=== PATIENT | female | born 1990 | race Caucasian/White ===

== ENCOUNTER → 2017-12-06 | Outpatient (CLI) | payer OTHER ==
[~2017-12-06] MED LIST: MUCINEX DM ER1 EACH PO; SINCALIDE 3 MCG/VIAL INJ ONE
--- NOTE | 2017-12-06 19:25 | Diagnostic Imaging Report ---
Hepatobiliary Scan with Gallbladder Ejection Fraction Clinical information: 27 F with RUQ abdominal pain and nausea x 1 month Report: Following intravenous administration of 6 millicuries of Tc-99m mebrofenin, sequential static images of the abdomen in the anterior projection were obtained through 75 minutes. Sincalide (CCK analog) 1.7 micrograms was administered intravenously over 30 minutes with additional imaging for determination of gallbladder ejection fraction. Perfusion to the liver is normal. Extraction of tracer from the blood pool by the liver parenchyma is normal. Tracer is seen promptly within the biliary tract. The gallbladder begins to fill by 60 minutes post-injection of tracer and fills adequately. Tracer is seen in the small bowel by 15 minutes. The gallbladder ejection fraction with administration of sincalide is 72% (normal greater than 40%). Impression: 1. Filling of the gallbladder excludes the diagnosis of acute cystic duct obstruction/acute cholecystitis. 2. Normal gallbladder ejection fraction of 72% does not support the clinical diagnosis of chronic cholecystitis/gallbladder dyskinesia. Signed by: Dr. Carleen Stockton M.D. on 12/06/2017 7:21 PM
== END ==
LOC: NM 16:00
PROVIDERS: ATTEND Internal Medicine Gastroenterology
DX: R10.11 Right upper quadrant pain (principal)
CPT/HCPCS: 78227; 81025; A9537; J2805

== ENCOUNTER → 2017-12-20 | Day surgery (SDC) | payer OTHER ==
[~2017-12-20] MED LIST changes: +ALIGN4 MG PO; +FENTANYL CITRATE/PF 100MCG/2 ML INJ ONE; +LIDOCAINE HCL 2% LOCAL INJ 5 ML SDV VIAL INJ ONE; +MIDAZOLAM HCL 2 MG/2 ML VIAL ONE; -SINCALIDE 3 MCG/VIAL INJ ONE; +VITAMIN C PO; +VITAMIN D PO; +XANAX0.5 MG PO
[2017-12-20 14:05] VITALS: BP 106/70
--- NOTE | 2017-12-20 15:11 | Operative Report ---
DATE OF PROCEDURE: December 20, 2017 REFERRING PHYSICIAN: Dr. Alba Corea. PROCEDURE PERFORMED: Esophagogastroduodenoscopy with biopsies. INDICATIONS FOR EGD: Upper abdominal pain, nausea. MEDICATION: Patient was done under MAC. Please see anesthesiologist's note. PROCEDURE: With patient in lateral decubitus position, a flexible fiberoptic Olympus gastroscope was introduced into the esophagus under direct visualization without any difficulty. There was some patchy erythema noted in the distal esophagus. The scope was then advanced with ease into the stomach and mucosa overlying the antrum and the body revealed some patchy intense erythema and moderate edema, and biopsies were obtained and sent to stain for H. pylori. Pylorus appeared to be of normal contour and shape. It was intubated with ease and scope was advanced all the way to the second portion of the duodenum. The scope was then withdrawn slowly. Mucosa overlying the proximal second portion and duodenal bulb appeared to be within normal limits. The scope was then withdrawn back into the stomach and retroflexed and mucosa overlying the fundus and the cardia appeared to be within normal limits. The scope was then straightened out. The stomach was decompressed. The scope was subsequently withdrawn. Patient tolerated the procedure well. IMPRESSION 1. Distal esophagitis. 2. Gastritis, biopsied. Biopsies sent to stain for Helicobacter pylori. PLAN 1. Follow up histology. 2. Initiate Protonix 40 mg one p.o. q.a.m. and a.c. Job#: [id number] VAS cc:ALBA COREA MD
== END | disposition home or self-care (01) ==
LOC: ENDO 11:35
PROVIDERS: ATTEND Internal Medicine Gastroenterology
DX: K29.50 Unspecified chronic gastritis without bleeding (principal); K20.9 Esophagitis, unspecified; K21.9 Gastro-esophageal reflux disease without esophagitis; E05.00 Thyrotoxicosis with diffuse goiter without thyrotoxic crisis or storm; F41.9 Anxiety disorder, unspecified; Z68.33 Body mass index [BMI] 33.0-33.9, adult
CPT/HCPCS: 43239; 81025; J2001; J2250

== ENCOUNTER → 2020-01-08 | Outpatient (CLI) | payer OTHER ==
[~2020-01-08] MED LIST changes: -FENTANYL CITRATE/PF 100MCG/2 ML INJ ONE; -LIDOCAINE HCL 2% LOCAL INJ 5 ML SDV VIAL INJ ONE; -MIDAZOLAM HCL 2 MG/2 ML VIAL ONE
--- NOTE | 2020-01-08 16:36 | Diagnostic Imaging Report ---
HISTORY : Right pelvic pain COMPARISON : None Comment: Ultrasound examination of the pelvis was performed transabdominally and transvaginally. The uterus is heterogeneous in echotexture. Intramural fibroid is identified within the right uterine body measuring up to 1.3 cm. The uterus measures 8.3 x 4.0 x 6.4 cm. The endometrial stripe appears unremarkable and measures 0.9 cm in maximum thickness. The right ovary measures 4.2 x 2.9 x 3.6 cm. There is a well-defined circular hypoechoic lesion measuring up to 3.4 cm within the right ovary with low-level internal echoes. Additional probable follicle is noted measuring up to 1.4 cm. The left ovary measures 2.9 x 2.7 x 2.6 cm. Arterial and venous flow is identified in both ovaries. There is no evidence of fluid in the cul-de-sac. IMPRESSION : 1. Right ovarian probable endometrioma. Other considerations include hemorrhagic cyst or dermoid. Consider follow-up in 2-3 menstrual cycles versus nonemergent MRI of the pelvis for further evaluation. 2. Unremarkable ultrasound of the uterus with a tiny fibroid in the right uterine body measuring up to 1.3 cm. 3. No evidence of ovarian torsion the time of this examination. Signed by: Ovidio Ying MD on 01/08/2020 4:33 PM
== END ==
LOC: US 13:19
PROVIDERS: ATTEND Obstetrics & Gynecology
DX: N94.9 Unspecified condition associated with female genital organs and menstrual cycle (principal)
CPT/HCPCS: 76830; 76856; 93976

== ENCOUNTER → 2020-02-02 | Outpatient (CLI) | payer OTHER ==
[~2020-02-02] MED LIST changes: +DIATRIZOATE MEGL/DIATRIZOA SOD 30 ML BTL PO ONE; +IOPAMIDOL 370 MG/ML 200 ML INFUS..BTL INJ ONE; +SODIUM CHLORIDE 0.9% 50ML 50 ML ONE
--- NOTE | 2020-02-02 18:39 | Diagnostic Imaging Report ---
EXAM: CT Abdomen and Pelvis WITH contrast INDICATION: ^[id number] ^[id number] ^ACUTE ABDOMEN PAIN COMPARISON: Pelvic ultrasound 01/08/2020 TECHNIQUE: Abdomen and pelvis were scanned utilizing a multidetector helical scanner from the lung base to the pubic symphysis after administration of IV contrast. Coronal and sagittal reformations were obtained. Routine protocol was performed. Scan was performed when during portal venous phase. IV CONTRAST: 100 mL of Isovue 370 ORAL CONTRAST: Gastrografin COMPLICATIONS: None RADIATION DOSE: Total DLP: 656.05 mGy*cm Estimated effective dose: (DLP x 0.015 x size factor) mSv CTDIvol has been reviewed. It is below the limits set by the Radiation Protocol Committee (RPC). Dose modulation, iterative reconstruction, and/or weight based adjustment of the mA/kV was utilized to reduce the radiation dose to as low as reasonably achievable. FINDINGS: LINES and TUBES: None. LOWER THORAX: Visualized lung bases are unremarkable. Visualized portions of inferior mediastinum are unremarkable. HEPATOBILIARY: Liver is normal in size and attenuation. No focal hepatic lesions. No biliary ductal dilation. GALLBLADDER: No radio-opaque stones or sludge. No wall thickening. SPLEEN: No splenomegaly. PANCREAS: No focal masses or ductal dilatation. ADRENALS: No adrenal nodules KIDNEYS/URETERS: Kidneys enhance symmetrically. Mild right hydronephrosis and dilation of the right proximal and mid ureter. Distal portion of the right ureter is poorly visualized however courses adjacent to right adnexal cyst, which may result in mass effect on the ureter. No cystic or solid mass lesions. No stones. GI TRACT: No abnormal distention, wall thickening, or evidence of bowel obstruction. Enteric contrast extends to the distal small bowel in the right lower abdominal quadrant. Appendix is normal. PELVIC ORGANS/BLADDER: Right adnexal hypoattenuating cystic lesion measures up to 3.9 cm with areas of fluid density in other areas of mild hyperattenuation, correlates with right ovarian lesion on prior ultrasound. Uterus and left adnexa are unremarkable. LYMPH NODES: No lymphadenopathy. VESSELS: Unremarkable. PERITONEUM / RETROPERITONEUM: No free air or fluid. BONES: Unremarkable. SOFT TISSUES: Unremarkable. IMPRESSION: 1. Indeterminate right adnexal hypoattenuating lesion with few areas of hyperattenuation measuring up to 3.9 cm. Finding correlates with right ovarian lesion on prior pelvic ultrasound however mildly increased in size on current CT. 2. Mild right hydroureteronephrosis which may be secondary to mass effect from right adnexal lesion on right distal ureter. Signed by: Dr. Norbert Kim M.D. on 02/02/2020 6:36 PM
== END ==
LOC: CT 16:22
PROVIDERS: ATTEND Family Medicine
DX: R10.0 Acute abdomen (principal)
CPT/HCPCS: 74177; 81025; Q9967

== ENCOUNTER → 2021-03-25 | Outpatient (CLI) | payer OTHER ==
[~2021-03-25] MED LIST changes: -DIATRIZOATE MEGL/DIATRIZOA SOD 30 ML BTL PO ONE; -IOPAMIDOL 370 MG/ML 200 ML INFUS..BTL INJ ONE; -SODIUM CHLORIDE 0.9% 50ML 50 ML ONE
== END ==
LOC: RAD 10:59
PROVIDERS: ATTEND Family Medicine
DX: R60.0 Localized edema (principal)
CPT/HCPCS: 93970

== ENCOUNTER → 2022-01-09 | Outpatient (CLI) | payer OTHER | LOC: US 12:25 | PROVIDERS: ATTEND Family Medicine | DX: E05.00 Thyrotoxicosis with diffuse goiter without thyrotoxic crisis or storm (principal) | CPT/HCPCS: 76536 ==

== ENCOUNTER → 2022-01-24 | Outpatient (CLI) | payer OTHER | LOC: US 13:17 | PROVIDERS: ATTEND Family Medicine | DX: E04.1 Nontoxic single thyroid nodule (principal) | CPT/HCPCS: 10005; 88172; 88173; 88300 ==